=== PATIENT | female | born 1995 | race Two or more races ===

== ENCOUNTER 2019-10-08 02:24 | Emergency (ER) | payer OTHER ==
[~2019-10-08] VITALS: Ht 175.3 cm; Wt 61.4 kg
[2019-10-08] MEDS ORDERED: IBUPROFEN 600 MG TABLET PO ONE (03:45)
[2019-10-08] MEDS ORDERED: BACITRACIN 0.9 GM PACKET OINTMENT TP ONE (03:45)
[2019-10-08] MEDS ORDERED: ACETAMINOPHEN 500 MG TABLET PO ONE (03:45)
[2019-10-08 04:17] VITALS: BP 130/81
== END 2019-10-08 04:18 | disposition home or self-care (01) ==
LOC: EMS 02:26
DX: S60.221A Contusion of right hand, initial encounter (principal); W22.01XA Walked into wall, initial encounter; Y93.89 Activity, other specified; Y92.89 Other specified places as the place of occurrence of the external cause; Y99.8 Other external cause status
CPT/HCPCS: 29280